=== PATIENT | female | born 1955 | race Caucasian/White ===

== ENCOUNTER → 2021-03-30 03:20 | Outpatient (CLI) | payer OTHER, SELFPAY ==
[2021-03-30 21:56] LABS: SARS-CoV-2 RNA PCR Negative
== END ==
PROVIDERS: PCP Student in an Organized Health Care Education/Training Program; Visit Provider Internal Medicine Gastroenterology
DX: Z01.812 Encounter for preprocedural laboratory examination (principal); Z20.822 Contact with and (suspected) exposure to COVID-19
CPT/HCPCS: C9803; U0003; U0005

== ENCOUNTER 2021-04-02 00:47 | Day surgery (SDC) | payer OTHER, SELFPAY ==
[2021-03-21 12:27] VITALS: BMI 27.3
[2021-04-02 07:34] VITALS: BP 138/85; PULSE 83; RESP 18; TEMP 36.3; O2SAT 97; BMI 26.9
[2021-04-02 07:44] LABS: Glucose Point of Care 148 mg/dl (65-105)
[2021-04-02] MEDS: LACTATED RINGERS 1,000 ML 150 ML IV CONT (07:54)
--- NOTE | 2021-04-02 07:57 | P.PNAN_ITS ---
Anes - Initial Pre Proc Eval Procedure: Operation Date: 04/02/21 08:30 Proposed Procedures p Screening Colonoscopy - Dhiraj Disla MD Date/Time: 04/02/21 07:57 Surgeon: Dhiraj Disla MD Pre Op Diagnosis: neoplasm screening Patient Data Age: 65 Gender: F Height: 1.55 m Weight: 64.8 kg Last Vital Signs Temp 36.3 C L 04/02/21 07:34 Pulse 83 04/02/21 07:34 Resp 18 04/02/21 07:34 BP 138/85 04/02/21 07:34 Pulse Ox 97 04/02/21 07:34 Allergies Allergy/AdvReac Type Severity Reaction Status Date / Time [id number] Reductase AdvReac Joint Pain Verified 04/02/21 07:44 Inhibitor Home Medications Medication Instructions Recorded Confirmed Type glipizide 2.5 mg PO DAILY 03/21/21 04/02/21 History solifenacin 5 mg PO DAILY 03/21/21 04/02/21 History Laboratory Tests 04/02/21 07:41 POC Capillary Glucose 148 mg/dl H mg/dl (65-105) Patient hx anesthesia problems: none Family hx anesthesia problems: none Results Review: All pre-operative results and documents have been reviewed as part of the pre-operative evaluation. [facility] Past Medical History Medical History (Updated 04/02/21 @ 07:58 by Pedro Valencia MD) Diabetes Hyperlipidemia Social History Social History Additional smoking assessment comments: father smoked while she was growing up; she smoked briefly at age 17 Alcohol intake: never Substance use: never Substance use type: does not use Living arrangements: with family Spiritual care concerns: No Anes - Eval Final PreProcedure Day of Procedure 04/02/21 07:57 Patient weight: overweight Heart: regular rate and rhythm Lungs: clear to auscultation Airway: Mallampati scale class II Neurological: alert and oriented Last oral intake: >/= 8 hours ASA classification: III Emergent: no Anesthetic plan: proceed Anesthesia type and monitoring: general GIVS and standard monitoring Results Review: All pre-operative results and documents have been reviewed as part of the pre-operative evaluation. Informed Consent: The patient's anesthetic plan and its attendant risks and benefits were discussed with the patient/family/POA. Questions were solicited and answers provided to the satisfaction of the patient/family/POA.
--- NOTE | 2021-04-02 08:13 | PM.HPGS ---
History of Present Illness History of Present Illness Consent: Risks, benefits, and alternatives have been discussed and questions answered. Patient agrees to proceed with procedure. Chief complaint: neoplasm screening Narrative: Nicol Ta is a 65 year old female here for first screening colonoscopy Review of Systems Constitutional: Constitutional: Denies headache(s) and Denies weakness Eyes: Eyes: Denies blurry vision ENT: Reports Normal hearing present, Denies headache(s) and Denies neck pain Cardiovascular: Cardiovascular: Denies chest pain and Denies dyspnea Respiratory: Respiratory: Denies dyspnea Gastrointestinal: Gastrointestinal: Reports no additional gastrointestinal complaints Genitourinary: Genitourinary: Denies dysuria Musculoskeletal: Musculoskeletal: Denies neck pain Integumentary/Breasts: Skin/Breast: Denies dry skin Neurologic: Reports Normal hearing present, Denies headache(s) and Denies weakness Psychiatric: Psychiatric: Denies anxiety Endocrine: Endocrine: Denies change in body appearance Hematologic/Lymphatic: Hematologic/Lymphatic: Denies easy bleeding Allergic/Immunologic: Allergic/Immunologic: Denies urticaria PMF Past Medical History Medical History (Updated 04/02/21 @ 08:14 by Dhiraj Disla MD) Colon cancer screening Diabetes Hyperlipidemia Social History Social History Additional smoking assessment comments: father smoked while she was growing up; she smoked briefly at age 17 Alcohol intake: never Substance use: never Substance use type: does not use Living arrangements: with family Spiritual care concerns: No Meds Home Medications and Allergies Home Medications Medication Instructions Recorded Confirmed Type glipizide 2.5 mg PO DAILY 03/21/21 04/02/21 History solifenacin 5 mg PO DAILY 03/21/21 04/02/21 History Allergies Allergy/AdvReac Type Severity Reaction Status Date / Time [id number] Reductase AdvReac Joint Pain Verified 04/02/21 07:44 Inhibitor Vital Signs Vital Signs - 24 hr 04/02/21 07:34 Temperature 97.4 F L Pulse Rate 83 Respiratory Rate 18 Blood Pressure 138/85 Pulse Oximetry 97 Exam Const: General: comfortable and no acute distress HENMT: General nose exam: Normal nares present Eyes: General: appearance normal, both eyes and all related structures Neck: Neck: no JVD Resp: Auscultation: clear to auscultation bilaterally Cardio: Rate: regular rate Rhythm: regular rhythm GI: Inspection: non-distended GI Palp: Yes Soft to palpation Skin: General skin exam: normal color Neuro: General: gait normal Speech: normal speech Extrem: General: normal to inspection Psych: Mental Status: mental status grossly normal Assessment and Plan Assessment and plan (1) Colon cancer screening: Code(s): Z12.11 - Encounter for screening for malignant neoplasm of colon Status: Acute Assessment and Plan: colonoscopy
[2021-04-02 08:32] VITALS: BP 102/65; PULSE 73; RESP 18; O2SAT 97
[2021-04-02 08:42] VITALS: BP 113/72; PULSE 77; RESP 20; O2SAT 100
[2021-04-02 08:52] VITALS: BP 120/73; PULSE 67; RESP 17; O2SAT 99
== END 2021-04-02 09:10 | disposition home or self-care (01) ==
PROVIDERS: PCP Student in an Organized Health Care Education/Training Program; Visit Provider Internal Medicine Gastroenterology
PROC: 0DJD8ZZ Inspection of Lower Intestinal Tract, Via Natural or Artificial Opening Endoscopic (ICD-10-PCS; CPT 45378; principal; 2021-04-02 08:30)
DX: Z12.11 Encounter for screening for malignant neoplasm of colon (principal); D12.0 Benign neoplasm of cecum; K64.8 Other hemorrhoids; E11.9 Type 2 diabetes mellitus without complications; E78.5 Hyperlipidemia, unspecified
CPT/HCPCS: 45385; 82948; 88305; C9803; J2704; J7120; U0003; U0005

== ENCOUNTER 2023-12-13 00:21 | Emergency (ER) | payer OTHER, SELFPAY ==
--- NOTE | ~2023-12-13 | XR_ITS ---
EXAMINATION: XR chest 1V portable DATE: 12/13/2023 01:06 INDICATION: Cough and headache TECHNIQUE: frontal view of the chest was obtained. COMPARISON: None FINDINGS: Mild linear discoid atelectasis at the lateral left lung base. No other airspace opacities, pulmonary edema, pleural effusion or pneumothorax. The cardiomediastinal silhouette is normal. IMPRESSION: 1. Mild discoid atelectasis at the left lung base. Reviewed, dictated and finalized at location A.
[2023-12-13 00:23] VITALS: BP 156/74; PULSE 92; RESP 14; TEMP 36.8; O2SAT 98
--- NOTE | 2023-12-13 00:48 | ED.GENADULT ---
[facility] - General Adult General Chief complaint: Upper Respiratory Infection Stated complaint: URI sx, wants covid test Time Seen by Provider: 12/13/23 00:32 Source: patient Mode of arrival: ambulatory Limitations: no limitations History of Present Illness HPI narrative: This is a 68-year-old female with PMH of HLD, dm type 2 who presents to the ED for chief complaint of cough and headache. Reports multiple family members at home positive for COVID and she would like to be tested today as her home test was negative. Reports cough is dry and headache has been gradual in onset. Endorses a little sore throat due to cough. Denies chest pain, dyspnea, back pain, numbness, weakness, dizziness or syncope. Related Data Home Medications Medication Instructions Recorded Confirmed glipizide 2.5 mg tablet, extended 2.5 mg PO DAILY 03/21/21 04/02/21 release 24 hr solifenacin 5 mg tablet 5 mg PO DAILY 03/21/21 04/02/21 Allergies Allergy/AdvReac Type Severity Reaction Status Date / Time [id number] Reductase AdvReac Joint Pain Verified 12/13/23 01:39 Inhibitor Review of Systems Review of Systems: All systems as dictated in HPI [facility] Past Medical History Medical History (Updated 12/13/23 @ 01:32 by Shay Reno PA-C) Colon cancer screening Diabetes Hyperlipidemia Social History Social History Additional smoking assessment comments: father smoked while she was growing up; she smoked briefly at age 17 Alcohol intake: never Substance use: never Substance use type: does not use Living arrangements: with family Spiritual care concerns: No Exam Narrative: GENERAL: Well-appearing, well-nourished, and in no acute distress. HEAD: Normocephalic, atraumatic. EYES: PERRLA and EOMI. ENT: Nares clear, no rhinorrhea or epistaxis. Mucous membranes moist. Oropharynx without tonsillar hypertrophy exudate or other lesions. NECK: Supple. No adenopathy or masses. CHEST: No respiratory distress. Clear to auscultation. No wheezes rales or rhonchi HEART: Regular rate and rhythm. No murmur heard. Normal peripheral pulses. ABDOMEN: Soft, nontender, nondistended, normal active bowel sounds. MSK: Normal range of motion. No edema. SKIN: Warm, dry, no rash. NEURO: Alert and oriented x4. No focal deficits. PSYCH: Normal mood and affect. Course Vital Signs Vital signs: Vital Signs Temperature 98.2 F 12/13/23 00:23 Pulse Rate 92 12/13/23 00:23 Respiratory Rate 14 12/13/23 00:23 Blood Pressure 156/74 H 12/13/23 00:23 Pulse Oximetry 98 12/13/23 00:23 Oxygen Delivery Room Air 12/13/23 00:23 Temperature 98.2 F 12/13/23 00:23 Pulse Rate 92 12/13/23 00:23 Respiratory Rate 14 12/13/23 00:23 Blood Pressure 156/74 H 12/13/23 00:23 Pulse Oximetry 98 12/13/23 00:23 Oxygen Delivery Room Air 12/13/23 01:08 Medical Decision Making MDM Narrative Medical decision making narrative: This is a 68 yo female who presents to the ED for chief complaint of cough, headache and in need of COVID test. Two family members at home with COVID positive. Vitals are normal and exam is benign. No respiratory distress. Saturating well on room air. Viral swabs positive for COVID Chest x-ray preliminary read shows no acute cardiopulmonary findings. Due to patient's history of diabetes, offered Paxlovid in the setting of early COVID but pt declines. Patient will be discharged in stable condition. Supportive measures discussed and return precautions given. Patient is understanding and agreeable with plan for discharge with PCP follow-up. Vital Signs Vital Signs: Vital Signs Temperature 98.2 F 12/13/23 00:23 Pulse Rate 92 12/13/23 00:23 Respiratory Rate 14 12/13/23 00:23 Blood Pressure 156/74 H 12/13/23 00:23 Pulse Oximetry 98 12/13/23 00:23 Oxygen Delivery Room Air 12/13/23 00:23 Temperature 98.2 F 10
[2023-12-13 01:17] LABS: Influenza A QL RT-PCR Negative (Negative); Influenza B QL RT-PCR Negative (Negative); RSV RNA, RT-PCR Negative (Negative); SARS-CoV-2 RNA PCR Positive (Negative)
[2023-12-13] MEDS: IBUPROFEN 600 MG TABLET PO (01:39)
[2023-12-13] MEDS: ACETAMINOPHEN 500 MG TABLET 1000 MG PO (01:39)
[2023-12-13 01:40] VITALS: BP 136/70; PULSE 82; RESP 18; O2SAT 99
== END 2023-12-13 02:02 | disposition home or self-care (01) ==
PROVIDERS: Emergency Medicine; Emergency Provider Physician Assistant; PCP Student in an Organized Health Care Education/Training Program
DX: U07.1 COVID-19 (principal); E78.5 Hyperlipidemia, unspecified; E11.9 Type 2 diabetes mellitus without complications; Z79.84 Long term (current) use of oral hypoglycemic drugs
CPT/HCPCS: 71045; 87637; 99283; A9270